=== PATIENT | female | born 1945 | race Caucasian/White ===

== ENCOUNTER 2017-03-03 12:24 | Emergency (ER) | payer OTHER, BC ==
[~2017-03-03] VITALS: Ht 154.9 cm; Wt 95.4 kg
[~2017-03-03 12:24] MED LIST: CINNAMON500 MG PO; CORTISPORIN OIN15 GM TP; CYMBALTA30 MG PO; HYDROCODON-ACE1 EAC7 PO; LANTUS 10100 UNITS/ SC; LO-DOSE ASPIRIN81 M1 PO; MONOPRIL40 MG PO; NORVASC10 MG PO; NOVOLOG 10100 UNITS/ SC; TENORMIN100 MG PO; VITAMIN D35000 UNIT PO
[2017-03-03 14:47] LABS: HEMATOCRIT 39.4 % (36.0-46.0); MCH 27.9 PG (29.0-34.0); MCHC 33.2 G/DL (30.0-36.0); MEAN PLAT.VOLUME 10.3 uM^3 (9.5-12.4); PLATELET COUNT 198 K/uL (156-360); RBC DIS.WIDTH-SD 42.6 % (39-53); RED BLOOD COUNT 4.69 M/uL (3.80-5.20); WHITE BLOOD COUNT 9.9 K/uL (4.1-10.2)
[2017-03-03 14:55] LABS: CHLORIDE 98 mEq/L (99-109); POTASSIUM 3.5 mEq/L (3.7-5.4); SODIUM 137 mEq/L (136-147)
[2017-03-03 14:59] LABS: ANION GAP 11 MEQ/L (2-14); GLUCOSE 475 mg/dL (70-99)
[2017-03-03 15:00] LABS: TOTAL BILIRUBIN 1.5 mg/dL (0.0-1.0)
[2017-03-03 15:01] LABS: ALKALINE PHOSPHATASE 156 IU/L (3-129); GFR ESTIMATE (CALCULATED) 58 mL/min/
[2017-03-03 15:02] LABS: UREA NITROGEN (BUN) 10 mg/dL (9-23)
[2017-03-03 15:05] LABS: LIPASE 7 U/L (1.0-51.0)
[2017-03-03 15:19] LABS: ADD MIUA? YES; BILIRUBIN NEGATIVE; BLOOD SMALL; COLOR YELLOW ((YELLOW)); GLUCOSE (STRIP) >=500; KETONES NEGATIVE; LEUKOCYTES TRACE; NITRITE NEGATIVE; PROTEIN (STRIP) NEGATIVE; SPECIFIC GRAVITY 1.009 (1.000-1.030)
[2017-03-03 15:28] LABS: BACTERIA RARE /HPF; EPITHELIAL CELLS NONE SEEN /HPF; MUCUS TRACE /LPF; WHITE BLOOD CELLS CLUMP OCC /HPF (0-5)
[2017-03-03 17:21] LABS: POINT-OF-CARE METER ID UU13113747
[2017-03-03] MEDS ORDERED: CIPRO500 MG PO (17:48)
[2017-03-03] MEDS ORDERED: TYLENOL WITH C1 EACH PO (17:48)
[2017-03-03 19:29] VITALS: BP 118/73
== END 2017-03-03 19:31 | disposition home or self-care (01) ==
LOC: EME 12:24
PROVIDERS: Emergency Medicine; Physician Assistant
DX: E11.65 Type 2 diabetes mellitus with hyperglycemia (principal); N39.0 Urinary tract infection, site not specified; N39.3 Stress incontinence (female) (male); M25.569 Pain in unspecified knee; I10 Essential (primary) hypertension; Z90.710 Acquired absence of both cervix and uterus; Z90.49 Acquired absence of other specified parts of digestive tract; Z79.4 Long term (current) use of insulin; Z79.82 Long term (current) use of aspirin; Z87.891 Personal history of nicotine dependence
CPT/HCPCS: 80053; 81003; 82948; 83690; 85027; 99281; 99285; J2270; J7030

== ENCOUNTER 2017-09-14 13:17 | Inpatient (IN) | payer OTHER, BC ==
[~2017-09-14] VITALS: Ht 152.4 cm; Wt 94.8 kg
[~2017-09-14 13:17] MED LIST changes: +CIPRO500 MG PO; +TYLENOL WITH C1 EACH PO
[2017-09-14 16:46] LABS: HEMATOCRIT 42.2 % (36.0-46.0); HEMOGLOBIN 15.1 G/DL (11.9-15.5); MCH 29.4 PG (29.0-34.0); MCHC 35.8 G/DL (30.0-36.0); MCV 82.1 FL (83-99); PLATELET COUNT 244 K/uL (156-360); RBC DIS.WIDTH-CV 14.7 % (11.8-14.6); RBC DIS.WIDTH-SD 43.8 % (39-53); RED BLOOD COUNT 5.14 M/uL (3.80-5.20); WHITE BLOOD COUNT 8.1 K/uL (4.1-10.2)
[2017-09-14 16:54] LABS: ALBUMIN 3.1 g/dL (3.2-4.8); CHLORIDE 104 mEq/L (99-109); POTASSIUM 3.2 mEq/L (3.7-5.4); SODIUM 140 mEq/L (136-147)
[2017-09-14 16:56] LABS: GLUCOSE 244 mg/dL (70-99)
[2017-09-14 16:57] LABS: TOTAL PROTEIN 7.4 g/dL (6.4-8.3)
[2017-09-14 16:58] LABS: TOTAL BILIRUBIN 0.6 mg/dL (0.0-1.0)
[2017-09-14 17:00] LABS: ALKALINE PHOSPHATASE 159 IU/L (3-129); CREATININE 1.3 mg/dL (0.6-1.3); GFR ESTIMATE (CALCULATED) 43 mL/min/
[2017-09-14 17:01] LABS: UREA NITROGEN (BUN) 18 mg/dL (9-23)
[2017-09-14 17:02] LABS: AST (GOT) 26 IU/L (2-34)
[2017-09-14 17:03] LABS: ALT (GPT) 14 IU/L (3-49)
[2017-09-14 17:09] LABS: TROP-I INTERPRETATION NEGATIVE; TROPONIN-I 0.01 ng/mL (0.0-0.30)
[2017-09-14 23:54] VITALS: BP 114/56
[2017-09-15 00:44] VITALS: BP 99/50
[2017-09-15 00:50] LABS: TROP-I INTERPRETATION NEGATIVE; TROPONIN-I 0.01 ng/mL (0.0-0.30)
[2017-09-15 03:45] VITALS: BP 103/58
[2017-09-15 06:56] LABS: Estimated Average Glucose 171 mg/dL (70-123); HEMOGLOBIN A1c (GLYCOHEMOGLOB) 7.6 % HGB (Below 5.7)
[2017-09-15 07:49] LABS: CHLORIDE 107 MEQ/L (99-109); CREATININE 1.7 MG/DL (0.6-1.3); GFR ESTIMATE (CALCULATED) 32 mL/min/; GLUCOSE 207 mg/dL (70-99); POTASSIUM 3.6 MEQ/L (3.7-5.4); SODIUM 143 MEQ/L (136-147); UREA NITROGEN (BUN) 22 mg/dL (9-23)
[2017-09-15 07:50] LABS: TROP-I INTERPRETATION NEGATIVE; TROPONIN-I < 0.01 ng/mL (0.0-0.30)
[2017-09-15 08:28] LABS: FOLIC ACID (FOLATE) 12.4 NG/ML (5.0-22.0)
[2017-09-15 13:25] LABS: HEMOGLOBIN 14.3 G/DL (11.9-15.5); MCHC 33.3 G/DL (30.0-36.0); PLATELET COUNT 258 K/uL (156-360); RBC DIS.WIDTH-CV 15.5 % (11.8-14.6); RBC DIS.WIDTH-SD 48.9 % (39-53); RED BLOOD COUNT 4.93 M/uL (3.80-5.20); WHITE BLOOD COUNT 8.4 K/uL (4.1-10.2)
[2017-09-15 13:26] LABS: MCV 87.2 FL (83-99)
[2017-09-15 15:16] VITALS: BP 109/55
[2017-09-15 21:00] VITALS: BP 124/60
[2017-09-16] VITALS (7 sets, daily range): BP systolic 132–160; BP diastolic 64–86
[2017-09-17 04:01] VITALS: BP 144/64
[2017-09-17 07:59] VITALS: BP 143/67
[2017-09-17 10:37] LABS: HEMATOCRIT 40.6 % (36.0-46.0); HEMOGLOBIN 13.6 G/DL (11.9-15.5); MCH 28.9 PG (29.0-34.0); MCHC 33.5 G/DL (30.0-36.0); MCV 86.4 FL (83-99); PLATELET COUNT 185 K/uL (156-360); RBC DIS.WIDTH-CV 14.8 % (11.8-14.6); RBC DIS.WIDTH-SD 46.6 % (39-53); WHITE BLOOD COUNT 6.5 K/uL (4.1-10.2)
[2017-09-17 11:06] LABS: CHLORIDE 107 MEQ/L (99-109); CREATININE 1.3 MG/DL (0.6-1.3); GFR ESTIMATE (CALCULATED) 43 mL/min/; GLUCOSE 229 mg/dL (70-99); SODIUM 140 MEQ/L (136-147); UREA NITROGEN (BUN) 25 mg/dL (9-23)
[2017-09-17 11:50] LABS: POTASSIUM 4.5 MEQ/L (3.7-5.4)
[2017-09-17 11:59] VITALS: BP 126/75
[2017-09-17 15:28] VITALS: BP 137/63
[2017-09-17 19:30] VITALS: BP 137/61
[2017-09-17 23:35] VITALS: BP 143/66
[2017-09-18 02:49] VITALS: BP 107/63
[2017-09-18 09:00] VITALS: BP 136/64
[2017-09-18 12:39] VITALS: BP 177/80
[2017-09-18] MEDS ORDERED: ENDOCET 5-3251 EACH PO (13:05)
[2017-09-18] MEDS ORDERED: DULOXETINE HCL60 MG PO (14:47)
[2017-09-18 15:03] VITALS: BP 147/65
== END 2017-09-18 16:11 | DRG 543 ==
LOC: EME 13:17 → EDOF 21:26 → ENRESERV 21:27 → 5WEST 23:14
PROVIDERS: Emergency Medicine; Hospitalist
DX: M48.56XA Collapsed vertebra, not elsewhere classified, lumbar region, initial encounter for fracture (principal); Z68.41 Body mass index [BMI] 40.0-44.9, adult; R18.8 Other ascites; F33.9 Major depressive disorder, recurrent, unspecified; E66.01 Morbid (severe) obesity due to excess calories; E11.9 Type 2 diabetes mellitus without complications; I10 Essential (primary) hypertension; K59.00 Constipation, unspecified; W01.0XXA Fall on same level from slipping, tripping and stumbling without subsequent striking against object, initial encounter; Z66 Do not resuscitate; E87.6 Hypokalemia; F41.9 Anxiety disorder, unspecified; R91.1 Solitary pulmonary nodule; K74.60 Unspecified cirrhosis of liver; E04.2 Nontoxic multinodular goiter; M51.16 Intervertebral disc disorders with radiculopathy, lumbar region; G89.29 Other chronic pain; Z98.1 Arthrodesis status; R29.6 Repeated falls; Z91.81 History of falling; Y92.002 Bathroom of unspecified non-institutional (private) residence as the place of occurrence of the external cause; Z79.4 Long term (current) use of insulin; Z79.82 Long term (current) use of aspirin; Z87.891 Personal history of nicotine dependence; Z90.49 Acquired absence of other specified parts of digestive tract; Z96.652 Presence of left artificial knee joint
CPT/HCPCS: 71250; 72100; 72131; 72148; 73030; 80048; 80053; 82306; 82607; 82746; 82948; 83036; 84443; 84484; 85027; 93005; 94799; 99281; 99285; G0378; J1170; J1644; J1815; J2270; J2405; J3010; J7030

== ENCOUNTER 2017-10-05 09:20 | Inpatient (IN) | payer OTHER, BC ==
[~2017-10-05] VITALS: Ht 154.9 cm; Wt 87.0 kg
[~2017-10-05 09:20] MED LIST changes: +DULOXETINE HCL60 MG PO; +ENDOCET 5-3251 EACH PO; -LANTUS 10100 UNITS/ SC; +LANTUS 3 M100 UNITS1 SC
[2017-10-05 11:08] LABS: BASOPHIL (%) 0.3 % (0-1); BASOPHIL COUNT 0.1 K/uL (0-0.1); EOSINOPHIL (%) 0.7 % (0-5); EOSINOPHIL COUNT 0.1 K/uL (0-0.3); HEMATOCRIT 48.4 % (36.0-46.0); IMMATURE GRANULOCYTE (%) 0.4 % (0.0-0.7); LYMPHOCYTE (%) 9.2 % (15-42); LYMPHOCYTE COUNT 1.5 K/uL (1.0-2.8); MCH 29.1 PG (29.0-34.0); MCHC 36.4 G/DL (30.0-36.0); MONOCYTE COUNT 1.3 K/uL (0-0.8); NEUTROPHIL (%) 81.4 % (45-76); NEUTROPHIL COUNT 12.8 K/uL (1.8-6.4); RBC DIS.WIDTH-SD 42.2 % (39-53); WHITE BLOOD COUNT 15.7 K/uL (4.1-10.2)
[2017-10-05 11:10] LABS: HEMOGLOBIN 17.6 G/DL (11.9-15.5); PLATELET COUNT 292 K/uL (156-360); RED BLOOD COUNT 6.05 M/uL (3.80-5.20)
[2017-10-05 11:16] LABS: ALBUMIN 3.6 g/dL (3.2-4.8)
[2017-10-05 11:17] LABS: CHLORIDE 91 mEq/L (99-109); POTASSIUM 2.6 mEq/L (3.7-5.4); SODIUM 131 mEq/L (136-147)
[2017-10-05 11:19] LABS: GLUCOSE 194 mg/dL (70-99); TOTAL PROTEIN 7.8 g/dL (6.4-8.3)
[2017-10-05 11:21] LABS: TOTAL BILIRUBIN 0.5 mg/dL (0.0-1.0)
[2017-10-05 11:22] LABS: ALKALINE PHOSPHATASE 206 IU/L (3-129)
[2017-10-05 11:23] LABS: CREATININE 3.2 mg/dL (0.6-1.3); GFR ESTIMATE (CALCULATED) 15 mL/min/
[2017-10-05 11:24] LABS: AST (GOT) 37 IU/L (2-34); UREA NITROGEN (BUN) 62 mg/dL (9-23)
[2017-10-05 11:26] LABS: ALT (GPT) 20 IU/L (3-49); LIPASE 40 U/L (1.0-51.0)
[2017-10-05 12:13] LABS: APPEARANCE TURBID ((CLEAR)); BILIRUBIN NEGATIVE; BLOOD SMALL; COLOR AMBER ((YELLOW)); GLUCOSE (STRIP) NEGATIVE; KETONES NEGATIVE; LEUKOCYTES SMALL; NITRITE NEGATIVE; PROTEIN (STRIP) 100; UROBILINOGEN 0.2 MG/DL (0.2-1.0)
[2017-10-05 12:27] LABS: UCUL ADDED? YES; WHITE BLOOD CELLS TNTC /HPF (0-5)
[2017-10-05] MEDS ORDERED: OXYBUTYNIN CHLOR5 M1 PO (14:14)
[2017-10-05] MEDS ORDERED: NEURONTIN300 MG PO (14:16)
[2017-10-05] MEDS ORDERED: LANTUS 3 M100 UNITS1 SC (14:17)
[2017-10-05 20:00] VITALS: BP 147/73
[2017-10-06] VITALS (7 sets, daily range): BP systolic 101–150; BP diastolic 54–74
[2017-10-06 06:48] LABS: HEMATOCRIT 45.4 % (36.0-46.0); HEMOGLOBIN 16.5 G/DL (11.9-15.5); MCH 29.5 PG (29.0-34.0); MCHC 36.3 G/DL (30.0-36.0); MCV 81.1 FL (83-99); PLATELET COUNT 227 K/uL (156-360); RBC DIS.WIDTH-CV 15.4 % (11.8-14.6); RBC DIS.WIDTH-SD 44.5 % (39-53)
[2017-10-06 07:21] LABS: CHLORIDE 100 MEQ/L (99-109); CREATININE 2.1 MG/DL (0.6-1.3); GFR ESTIMATE (CALCULATED) 25 mL/min/; GLUCOSE 162 mg/dL (70-99); POTASSIUM 2.7 MEQ/L (3.7-5.4); SODIUM 135 MEQ/L (136-147); UREA NITROGEN (BUN) 65 mg/dL (9-23)
[2017-10-07 04:42] VITALS: BP 125/65
[2017-10-07 06:46] LABS: POTASSIUM ND MEQ/L (3.7-5.4)
[2017-10-07 06:47] LABS: CREATININE 1.9 MG/DL (0.6-1.3); GFR ESTIMATE (CALCULATED) 28 mL/min/; SODIUM 140 MEQ/L (136-147); UREA NITROGEN (BUN) 53 mg/dL (9-23)
[2017-10-07 06:48] LABS: CHLORIDE 112 MEQ/L (99-109); GLUCOSE 69 mg/dL (70-99)
[2017-10-07 07:24] VITALS: BP 136/61
[2017-10-07 07:25] LABS: POTASSIUM 3.1 MEQ/L (3.7-5.4)
[2017-10-07 08:05] LABS: HEMATOCRIT 41.2 % (36.0-46.0); MCH 28.5 PG (29.0-34.0); MCV 83.7 FL (83-99); PLATELET COUNT 183 K/uL (156-360); RBC DIS.WIDTH-CV 16.1 % (11.8-14.6); RBC DIS.WIDTH-SD 49.5 % (39-53); RED BLOOD COUNT 4.92 M/uL (3.80-5.20); WHITE BLOOD COUNT 10.6 K/uL (4.1-10.2)
[2017-10-07 11:10] VITALS: BP 124/63
[2017-10-07 15:06] VITALS: BP 141/68
[2017-10-07 19:49] LABS: URIC ACID 10.3 mg/dL (3.1-9.2)
[2017-10-07 19:50] VITALS: BP 172/74
[2017-10-08 00:55] VITALS: BP 150/68
[2017-10-08 05:16] VITALS: BP 167/72
[2017-10-08 05:57] LABS: ALBUMIN 2.8 G/DL (3.2-4.8); CHLORIDE 116 MEQ/L (99-109); GFR ESTIMATE (CALCULATED) 52 mL/min/; PHOSPHORUS 1.7 mg/dL (2.5-4.9); POTASSIUM 3.6 MEQ/L (3.7-5.4); SODIUM 142 MEQ/L (136-147); UREA NITROGEN (BUN) 30 mg/dL (9-23); URIC ACID 7.9 mg/dL (3.1-9.2)
[2017-10-08 05:59] LABS: CREATININE 1.1 MG/DL (0.6-1.3); GLUCOSE 174 mg/dL (70-99)
[2017-10-08 07:29] VITALS: BP 147/65
[2017-10-08 11:41] VITALS: BP 166/79
[2017-10-08 20:24] VITALS: BP 141/80
[2017-10-08 23:20] VITALS: BP 140/69
[2017-10-09 07:34] LABS: ALBUMIN 2.7 G/DL (3.2-4.8); CHLORIDE 112 MEQ/L (99-109); CREATININE 0.9 MG/DL (0.6-1.3); GFR ESTIMATE (CALCULATED) > 59 mL/min/; GLUCOSE 258 mg/dL (70-99); MAGNESIUM 1.5 mg/dl (1.3-2.7); PHOSPHORUS 2.2 mg/dL (2.5-4.9); POTASSIUM 3.2 MEQ/L (3.7-5.4); SODIUM 144 MEQ/L (136-147); UREA NITROGEN (BUN) 16 mg/dL (9-23)
[2017-10-09 08:47] VITALS: BP 135/74
[2017-10-09 16:10] VITALS: BP 143/68
[2017-10-09 23:38] VITALS: BP 159/76
[2017-10-10 07:15] LABS: HEMATOCRIT 38.5 % (36.0-46.0); HEMOGLOBIN 13.1 G/DL (11.9-15.5); MCH 28.5 PG (29.0-34.0); MCV 83.9 FL (83-99); PLATELET COUNT 162 K/uL (156-360); RBC DIS.WIDTH-SD 48.4 % (39-53); RED BLOOD COUNT 4.59 M/uL (3.80-5.20)
[2017-10-10 07:43] LABS: ALBUMIN 2.7 G/DL (3.2-4.8); CHLORIDE 107 MEQ/L (99-109); CHLORIDE 109 MEQ/L (99-109); CREATININE 0.9 MG/DL (0.6-1.3); GFR ESTIMATE (CALCULATED) 58 mL/min/; GFR ESTIMATE (CALCULATED) > 59 mL/min/; GLUCOSE 311 mg/dL (70-99); GLUCOSE 312 mg/dL (70-99); MAGNESIUM 1.5 mg/dl (1.3-2.7); PHOSPHORUS 2.1 mg/dL (2.5-4.9); POTASSIUM 3.3 MEQ/L (3.7-5.4); POTASSIUM 3.4 MEQ/L (3.7-5.4); SODIUM 139 MEQ/L (136-147); SODIUM 142 MEQ/L (136-147); UREA NITROGEN (BUN) 12 mg/dL (9-23)
[2017-10-10 08:42] VITALS: BP 148/98
[2017-10-10 16:37] VITALS: BP 139/82
[2017-10-11 00:35] VITALS: BP 114/78
[2017-10-11 06:50] LABS: MAGNESIUM 1.5 mg/dl (1.3-2.7); PHOSPHORUS 2.6 mg/dL (2.5-4.9)
[2017-10-11 06:52] LABS: ALBUMIN 2.5 G/DL (3.2-4.8); ALKALINE PHOSPHATASE 154 IU/L (3-129); ALT (GPT) 7 IU/L (3-49); AST (GOT) 14 IU/L (2-34); CHLORIDE 112 MEQ/L (99-109); GFR ESTIMATE (CALCULATED) 58 mL/min/; GLUCOSE 277 mg/dL (70-99); POTASSIUM 3.4 MEQ/L (3.7-5.4); SODIUM 145 MEQ/L (136-147); TOTAL BILIRUBIN 0.7 MG/DL (0.0-1.0); TOTAL PROTEIN 5.2 G/DL (6.4-8.3); UREA NITROGEN (BUN) 12 mg/dL (9-23)
[2017-10-11 07:36] VITALS: BP 168/74
[2017-10-11 16:15] VITALS: BP 128/73
[2017-10-12 01:35] VITALS: BP 141/64
[2017-10-12 07:24] VITALS: BP 140/75
[2017-10-12 09:13] LABS: HEMATOCRIT 38.7 % (36.0-46.0); HEMOGLOBIN 12.9 G/DL (11.9-15.5); MCH 28.7 PG (29.0-34.0); MCHC 33.3 G/DL (30.0-36.0); PLATELET COUNT 176 K/uL (156-360); RBC DIS.WIDTH-CV 16.4 % (11.8-14.6); WHITE BLOOD COUNT 6.3 K/uL (4.1-10.2)
[2017-10-12 09:36] LABS: CHLORIDE 108 MEQ/L (99-109); GFR ESTIMATE (CALCULATED) 58 mL/min/; GLUCOSE 244 mg/dL (70-99); POTASSIUM 3.7 MEQ/L (3.7-5.4); SODIUM 141 MEQ/L (136-147); UREA NITROGEN (BUN) 14 mg/dL (9-23)
[2017-10-12 11:42] VITALS: BP 140/77
[2017-10-12 15:28] VITALS: BP 141/71
[2017-10-13 00:05] VITALS: BP 125/78
[2017-10-13 07:03] VITALS: BP 152/72
[2017-10-13 15:15] VITALS: BP 145/69
[2017-10-14 00:21] VITALS: BP 161/80
[2017-10-14 07:04] VITALS: BP 139/79
[2017-10-14] MEDS ORDERED: ATENOLOL50 MG PO (11:29)
[2017-10-14] MEDS ORDERED: BUPROPION HCL150 M2 PO (11:30)
[2017-10-14] MEDS ORDERED: MIRTAZAPINE15 MG PO (11:30)
[2017-10-14] MEDS ORDERED: ARIPIPRAZOLE5 MG PO (11:30)
[2017-10-14] MEDS ORDERED: LIDOCAINE20 MG/1 M5 MM ×2 (11:31→11:32)
[2017-10-14] MEDS ORDERED: MUCINEX600 MG PO (11:31)
[2017-10-14] MEDS ORDERED: DOCUSATE SODIU100 MG PO (11:33)
[2017-10-14] MEDS ORDERED: NOVOLOG 10100 UNITS/ SC (11:34)
[2017-10-14] MEDS ORDERED: LEVEMIR100 UNIT/2 SC (11:34)
[2017-10-14] MEDS ORDERED: TYLENOL REGULA325 MG PO (11:36)
[2017-10-14] MEDS ORDERED: OXYCODONE HCL5 MG PO (11:37)
[2017-10-14] MEDS ORDERED: PROTONIX40 MG PO (14:27)
[2017-10-14 15:03] VITALS: BP 126/76
[2017-10-14 23:41] VITALS: BP 157/89
[2017-10-15 08:03] VITALS: BP 169/77
== END 2017-10-15 18:23 | DRG 683 ==
LOC: EME 09:20 → EDOF 12:47 → 5SOUTH 12:47 → ENRESERV 12:48 → 5SOUTH 17:03 → ENPENDDIS 10-15 → 5SOUTH 10-15 18:23
PROVIDERS: Emergency Medicine; Hospitalist; Internal Medicine; Internal Medicine Nephrology; Physician Assistant Medical
PROC: 0DB68ZX Excision of Stomach, Via Natural or Artificial Opening Endoscopic, Diagnostic (ICD-10-PCS; principal; 2017-10-12)
PROC: 0DB38ZX Excision of Lower Esophagus, Via Natural or Artificial Opening Endoscopic, Diagnostic (ICD-10-PCS; principal; 2017-10-12)
PROC: 0CBM8ZX Excision of Pharynx, Via Natural or Artificial Opening Endoscopic, Diagnostic (ICD-10-PCS; principal; 2017-10-12)
PROC: 0CJS8ZZ Inspection of Larynx, Via Natural or Artificial Opening Endoscopic (ICD-10-PCS; 2017-10-12)
DX: N17.1 Acute kidney failure with acute cortical necrosis (principal); N30.00 Acute cystitis without hematuria; F33.2 Major depressive disorder, recurrent severe without psychotic features; E87.2 Acidosis; E87.1 Hypo-osmolality and hyponatremia; K22.10 Ulcer of esophagus without bleeding; M48.56XA Collapsed vertebra, not elsewhere classified, lumbar region, initial encounter for fracture; E87.6 Hypokalemia; R29.6 Repeated falls; N18.3 Chronic kidney disease, stage 3 (moderate); Z66 Do not resuscitate; Z96.652 Presence of left artificial knee joint; K75.81 Nonalcoholic steatohepatitis (NASH); K29.80 Duodenitis without bleeding; K74.60 Unspecified cirrhosis of liver; G89.29 Other chronic pain; E11.22 Type 2 diabetes mellitus with diabetic chronic kidney disease; E11.65 Type 2 diabetes mellitus with hyperglycemia; E66.9 Obesity, unspecified; E83.39 Other disorders of phosphorus metabolism; E83.52 Hypercalcemia; E86.0 Dehydration; F22 Delusional disorders; I12.9 Hypertensive chronic kidney disease with stage 1 through stage 4 chronic kidney disease, or unspecified chronic kidney disease; J39.2 Other diseases of pharynx; K22.4 Dyskinesia of esophagus; K25.9 Gastric ulcer, unspecified as acute or chronic, without hemorrhage or perforation; K26.9 Duodenal ulcer, unspecified as acute or chronic, without hemorrhage or perforation; M54.16 Radiculopathy, lumbar region; R13.10 Dysphagia, unspecified; R11.14 Bilious vomiting; Z79.4 Long term (current) use of insulin; Z91.14 Patient's other noncompliance with medication regimen; Z87.891 Personal history of nicotine dependence; Z68.36 Body mass index [BMI] 36.0-36.9, adult
CPT/HCPCS: 70450; 71046; 72070; 72100; 74176; 74220; 76770; 80048; 80048 91; 80053; 80069; 81003; 82948; 83605; 83690; 83735; 84100; 84550; 84999; 85025; 85027; 87040; 87086; 87106; 87651 90; 88305; 88312; 88342 TC; 92610 GN; 93005; 97530 GO; 97530 GP; 99281; 99285; C9113; J0696; J1450; J1644; J1815; J2270; J2370; J2405; J2765; J3480; J7030; J7050; S0028